=== PATIENT | female | born 1950 ===

== ENCOUNTER 2018-03-10 10:37 | Emergency (ER) | payer OTHER ==
[2018-03-10 10:50] VITALS: RESP 18
--- NOTE | 2018-03-10 11:56 | C.PDOC ---
History Of Present Illness 67 year old female patient with hx of hysterectomy and valve resection presents to the ER with c/o cough for x6 days. Associated symptoms includes itchy throat , lower back pain, chills and subjective fever. Patient denies abdominal pain, nausea, vomiting and dysuria. Time Seen by Provider: 03/10/18 11:16 Chief Complaint (Nursing): Fever History Per: Patient History/Exam Limitations: no limitations Onset/Duration Of Symptoms: Days (x6) Current Symptoms Are (Timing): Still Present Past Medical History Reviewed: Historical Data, Nursing Documentation, Vital Signs Vital Signs: Last Vital Signs Temp 99.2 F 03/10/18 11:30 Pulse 98 H 03/10/18 14:45 Resp 18 03/10/18 14:45 BP 118/71 03/10/18 14:45 Pulse Ox 98 03/10/18 15:35 - Medical History PMH: Asthma, HTN, Osteoporosis Other Surgeries: hysterectomy and valve resection Family History: States: No Known Family Hx - Social History Hx Tobacco Use: No Hx Alcohol Use: No Hx Substance Use: No - Immunization History Hx Tetanus Toxoid Vaccination: No Hx Influenza Vaccination: No Hx Pneumococcal Vaccination: Yes Review Of Systems Except As Marked, All Systems Reviewed And Found Negative. Constitutional: Positive for: Fever (subjective ), Chills ENT: Positive for: Other (itchy throat ) Gastrointestinal: Negative for: Nausea, Vomiting, Abdominal Pain Genitourinary: Negative for: Dysuria Musculoskeletal: Positive for: Back Pain (low) Physical Exam - Physical Exam Appears: Non-toxic, No Acute Distress Skin: Normal Color, Warm, Dry Head: Atraumatic, Normacephalic Oral Mucosa: Moist Throat: Normal Chest: Symmetrical, No Deformity Cardiovascular: Rhythm Regular Respiratory: Normal Breath Sounds, No Rales, No Rhonchi, No Wheezing Gastrointestinal/Abdominal: Soft, No Tenderness Extremity: Normal ROM (x4) Neurological/Psych: Oriented x3, Normal Speech ED Course And Treatment - Laboratory Results Result Diagrams: 03/10/18 12:06 03/10/18 12:06 O2 Sat by Pulse Oximetry: 98 (RA) Pulse Ox Interpretation: Normal - Other Rad chest X-Ray: Read By Radiologist Interpretation: Accession No. : [id number]. Patient Name / ID : JW SANTAMARIA / [id number]. Exam Date : 03/10/2018 11:43:32 ( Approved ). Study Comment : Sex / Age : F / 67Y. Creator : Enrique Mahmood Dictator : Music Sound Light Technician : Kaiako Kura [place] : Tashi Lizarraga MD. Approver2 : Report Date : 03/10/2018 11:50:15. My Comment : . Date of service: 03/10/2018. HISTORY : Sepsis Patient. COMPARISON: Comparison chest dated 03/24/2013. TECHNIQUE: Chest PA and lateral. FINDINGS: LUNGS: Hyperinflation; rule out sequela of COPD or emphysema. Minimal linear atelectasis or scarring left lower lung field. PLEURA: Mild biapical pleural thickening. No evidence of effusion or pneumothorax. CARDIOVASCULAR: Normal. OSSEOUS STRUCTURES: No significant abnormalities. VISUALIZED UPPER ABDOMEN: Normal. OTHER FINDINGS: None. IMPRESSION: Hyperinflation; rule out sequela of COPD or emphysema. Minimal linear atelectasis or scarring left lower lung field. Medical Decision Making Medical Decision Making: Impression: cough with itchy throat, lower back pain and subjective fever. Plans: -- VBG -- EKG -- blood work -- chest XR -- Bcx -- Ucx -- Influenza A B stat -- UA Results: No pneumonia no influenza no white count, no fever, given nebulizer treatment, tessalone and prednisone to see if it helps her feel better. Reassess: Patient is resting comfortably. Rectal temperature is 99.2. Patient reports she is feeling much better. Patient is instructed to f/u with PMD in 1- 2 days. Disposition - Disposition Disposition: HOME/ ROUTINE Disposition Time: 15:32 Condition: STABLE Additional Instructions: Follow up with your doctor or our clinic. Prescriptions: Albuterol HFA [Ventolin HFA 90 mcg/actuation (8 g)] 1 puff IH QID PRN #1 puff PRN Reason: Cough Azithromycin 250 mg PO DAILY #6 tablet Benzonatate [Tessalon Perles] 200 mg PO TID PRN #12 sgl PRN Reason: Cough Prednisone [Deltasone] 60 mg PO DAILY #12 tablet Instructions: Acute Bronchitis, Adult (DC) Forms: [facility] (Serbian), General Discharge Instructions - POA Present On Arrival: None - Clinical Impression Clinical Impression: Influenza-like illness, Bronchitis - Scribe Statement The provider has reviewed the documentation as recorded by the Maria Antonia Junior Do Provider Attestation: All medical record entries made by the Deepibbladimir were at my direction and personally dictated by me. I have reviewed the chart and agree that the record accurately reflects my personal performance of the history, physical exam, medical decision making, and the department course for this patient. I have also personally directed, reviewed, and agree with the discharge instructions and disposition.
[2018-03-10 12:06] LABS: VENOUS BLOOD GAS PCO2 50 mmHg (40-60); VENOUS BLOOD GAS PO2 18 mm/Hg (30-55)
[2018-03-10 12:18] LABS: BASO % 0.5 % (0.0-2.0); EOS # 0.1 K/uL (0.0-0.7); EOS % 1.5 % (0.0-4.0); HEMOGLOBIN 11.2 g/dL (11.0-16.0); LYMPH % 21.7 % (20.0-40.0); MEAN CELL VOLUME 103.5 fL (81.0-99.0); MEAN CORPUSCULAR HEMOGLOBIN 36.6 pg (27.0-31.0); MEAN CORPUSCULAR HGB CONC 35.4 g/dL (33.0-37.0); MEAN PLATELET VOLUME 7.3 fL (7.2-11.7); MONO # 0.4 K/uL (0.0-0.8); MONO % 9.4 % (0.0-10.0); NEUT # 3.2 K/uL (1.8-7.0); NEUT % 66.9 % (50.0-75.0); NRBC % 0.1 % (0.0-2.0); RBC 3.05 Mil/uL (3.80-5.20); RED CELL DISTRIBUTION WIDTH 13.7 % (11.5-14.5); SQUAMOUS EPITHIAL < 1 /hpf (0-5); URINE BILIRUBIN NEGATIVE (NEGATIVE); URINE BLOOD NEGATIVE (NEGATIVE); URINE CLARITY Clear (Clear); URINE COLOR Yellow (YELLOW); URINE GLUCOSE (UA) NORMAL (Normal); URINE LEUKOCYTE ESTERASE TRACE Leu/uL (Negative); URINE PROTEIN NEGATIVE (NEGATIVE); URINE UROBILINOGEN NORMAL mg/dL (0.2-1.0); WHITE BLOOD COUNT 4.8 K/uL (4.8-10.8)
[2018-03-10 12:25] LABS: ALB/GLOB RATIO 1.3 (1.0-2.1); ALBUMIN 4.9 g/dL (3.5-5.0); ALT/SGPT 32 U/L (9-52); AST/SGOT 29 U/L (14-36); BLOOD UREA NITROGEN 18 mg/dL (7-17); CALCIUM 9.8 mg/dl (8.6-10.4); GFR NON-AFRICAN AMERICAN > 60
[2018-03-10 12:35] LABS: B-TYPE NATRIURETIC PEPTIDE 82.9 pg/mL (0-900)
[2018-03-10] MEDS ORDERED: Albuterol 0.083% Inhal Sol (2.5 mg/3 mL) UD ONE ×2 (13:36→14:07)
[2018-03-10] MEDS: Albuterol 0.083% Inhal Sol (2.5 mg/3 mL) UD INH SCH ×2 (13:38→14:05)
--- NOTE | 2018-03-10 13:47 | RAD ---
Date of service: 03/10/2018 HISTORY: Sepsis Patient COMPARISON: Comparison chest dated 03/24/2013. TECHNIQUE: Chest PA and lateral FINDINGS: LUNGS: Hyperinflation; rule out sequela of COPD or emphysema. Minimal linear atelectasis or scarring left lower lung field. PLEURA: Mild biapical pleural thickening. No evidence of effusion or pneumothorax CARDIOVASCULAR: Normal. OSSEOUS STRUCTURES: No significant abnormalities. VISUALIZED UPPER ABDOMEN: Normal. OTHER FINDINGS: None. IMPRESSION: Hyperinflation; rule out sequela of COPD or emphysema. Minimal linear atelectasis or scarring left lower lung field.
[2018-03-10 15:35] VITALS: O2SAT 98
[2018-03-10 15:49] VITALS: BP 121/72; PULSE 90; TEMP 98.9
--- NOTE | 2018-03-12 09:20 | CARD ---
APPROVED REPORT Date of service: 03/10/2018 EKG Measurement Heart [id number] <Conclusion> Normal sinus rhythm Normal ECG
== END 2018-03-10 15:49 | disposition home or self-care (01) ==
LOC: C.ER 10:37
DX: J11.1 Influenza due to unidentified influenza virus with other respiratory manifestations (principal)